=== PATIENT | female | born 1945 | race Caucasian/White ===

== ENCOUNTER → 2018-01-14 06:53 | Day surgery (SDC) | payer MEDICARE ==
[~2018-01-14 06:53] MED LIST: Acetaminophen TAB* 325 MG PO PRN; Buffered Lidocaine 0.9% SYRIN* 5 ML/SYR SYRINGE INTRADERM ONE; Cyclopentolate 1% OPTH.SOL* 2 ML BTL ONE; Ketorolac 0.5% OPHTH (NF) 0.5 % 5 ML BTL ONE; Lidocaine 1% MPF* 2 ML VIAL ONE; Lidocaine 2% EPI 1:200000 MPF* 20 ML VIAL ONE; Midazolam* 1 MG/ML 2 ML VIAL (2 MG) ONE; Neomycin/Polymy/Dex OPTH.SUSP* MAXITROL 0.1% 5 ML ONE; Phenylephrine 2.5% OPTH.SOL* 2 ML BTL ONE; Povidone Iodine 5% OPTH* 30 ML BTL ONE; Proparacaine 0.5% OPHTH.SOL* 15 ML BTL ONE; acetaZOLAMIDE TAB* 250 MG ONE
[2018-01-14 09:06] VITALS: BP 111/55
--- NOTE | 2018-01-15 00:48 | OP ---
DATE OF OPERATION: 01/14/18 [facility] DATE OF : 43 SURGEON: Jaime Valdez MD PRE-OP DIAGNOSIS: Cataract, right eye. POST-OP DIAGNOSIS: Cataract, right eye. OPERATIVE PROCEDURE: Extracapsular cataract extraction with intraocular lens implant, right eye. DESCRIPTION OF PROCEDURE: The patient was brought to the operating room after being given 1/2% Alcaine with epinephrine drops in the preoperative area. The eye was prepped and draped in the usual sterile fashion. Sterile drape and eyelid speculum were placed. Again, topical 1/2% Alcaine with epinephrine was given. A paracentesis incision was made at the 9 o'clock position with the No.75 blade. Clear cornea incision 2.2 x 2.2-mm was created at the 12 o'clock position starting at the anterior limbus using the 2.2-mm keratome. The anterior chamber was irrigated with 0.4 mL of 1% non-preservative intracameral lidocaine and filled with DisCoVisc. A capsulorrhexis was completed using the cystotome and the Utrata forceps. Hydrodissection was performed with balanced salt solution. The lens nucleus was removed with the Phacoemulsification handpiece without incident. Cortex was removed with the irrigation-aspiration handpiece. The capsular bag was re-inflated using DisCoVisc and an SN60WF 19.5 implant was inserted with the shooter. The irrigation-aspiration handpiece was used to remove all residual DisCoVisc. The eye was refilled with balanced salt solution and the wound checked and found to be watertight. Topical Maxitrol drops were given. [id number]/[facility] #: [id number] [facility]
== END | disposition home or self-care (01) ==
LOC: OREAST 06:53
PROVIDERS: ATTEND Specialist
DX: H25.811 Combined forms of age-related cataract, right eye (principal); H43.813 Vitreous degeneration, bilateral; I34.1 Nonrheumatic mitral (valve) prolapse; R00.2 Palpitations; E03.9 Hypothyroidism, unspecified; F41.8 Other specified anxiety disorders; J45.909 Unspecified asthma, uncomplicated
CPT/HCPCS: A9270-GY; J2250; V2632

== ENCOUNTER 2018-01-21 06:38 | Day surgery (SDC) | payer MEDICARE ==
[~2018-01-21 06:38] MED LIST changes: -Cyclopentolate 1% OPTH.SOL* 2 ML BTL ONE; -Ketorolac 0.5% OPHTH (NF) 0.5 % 5 ML BTL ONE; -Lidocaine 1% MPF* 2 ML VIAL ONE; -Lidocaine 2% EPI 1:200000 MPF* 20 ML VIAL ONE; -Midazolam* 1 MG/ML 2 ML VIAL (2 MG) ONE; -Neomycin/Polymy/Dex OPTH.SUSP* MAXITROL 0.1% 5 ML ONE; -Phenylephrine 2.5% OPTH.SOL* 2 ML BTL ONE; -Povidone Iodine 5% OPTH* 30 ML BTL ONE; -Proparacaine 0.5% OPHTH.SOL* 15 ML BTL ONE; -acetaZOLAMIDE TAB* 250 MG ONE
[2018-01-21] MEDS ORDERED: Lidocaine 2% EPI 1:200000 MPF* 20 ML VIAL ONE (07:39)
[2018-01-21] MEDS ORDERED: Cyclopentolate 1% OPTH.SOL* 2 ML BTL ONE (07:39)
[2018-01-21] MEDS ORDERED: acetaZOLAMIDE TAB* 250 MG ONE (07:39)
[2018-01-21] MEDS ORDERED: Lidocaine 1% MPF* 2 ML VIAL ONE (07:39)
[2018-01-21] MEDS ORDERED: Neomycin/Polymy/Dex OPTH.SUSP* MAXITROL 0.1% 5 ML ONE (07:40)
[2018-01-21] MEDS ORDERED: Povidone Iodine 5% OPTH* 30 ML BTL ONE (07:40)
[2018-01-21] MEDS ORDERED: Phenylephrine 2.5% OPTH.SOL* 2 ML BTL ONE (07:40)
[2018-01-21] MEDS ORDERED: Ketorolac 0.5% OPHTH (NF) 0.5 % 5 ML BTL ONE (07:40)
[2018-01-21] MEDS ORDERED: Proparacaine 0.5% OPHTH.SOL* 15 ML BTL ONE (07:40)
[2018-01-21] MEDS ORDERED: Midazolam* 1 MG/ML 2 ML VIAL (2 MG) ONE ×2 (07:47→08:03)
[2018-01-21 08:44] VITALS: BP 115/58
--- NOTE | 2018-01-21 10:23 | OP ---
DATE OF OPERATION: 01/21/2018 - [facility] DATE OF : 1945. SURGEON: Jaime Valdez M.D. PREOPERATIVE DIAGNOSIS: Cataract left eye. POSTOPERATIVE DIAGNOSIS: Cataract left eye. OPERATIVE PROCEDURE: Extracapsular cataract extraction with intraocular lens implant left eye. PROCEDURE: The patient was brought to the operating room after being given 1/2 % Alcaine with epinephrine drops in the preoperative area. The eye was prepped and draped in the usual sterile fashion. Sterile drape and eyelid speculum were placed. Again, topical 1/2% Alcaine with epinephrine was given. A paracentesis incision was made at the 3 o'clock position with the No.75 blade. Clear cornea incision 2.2 x 2.2-mm was created at the 6 o'clock position starting at the anterior limbus using the 2.2-mm keratome. The anterior chamber was irrigated with 0.4 mL of 1% non-preservative intracameral lidocaine and filled with DisCoVisc. A capsulorrhexis was completed using the cystotome and the Utrata forceps. Hydrodissection was performed with balanced salt solution. The lens nucleus was removed with the Phacoemulsification handpiece without incident. Cortex was removed with the irrigation-aspiration handpiece. The capsular bag was re-inflated using DisCoVisc and an SN60WF 19.5 implant was inserted with the shooter. The irrigation-aspiration handpiece was used to remove all residual DisCoVisc. The eye was refilled with balanced salt solution and the wound checked and found to be watertight. Topical Maxitrol drops were given. [id number]/[facility] #: [id number] [facility]
== END 2018-01-21 08:39 | disposition home or self-care (01) ==
LOC: OREAST 06:38
PROVIDERS: ATTEND Specialist
DX: H25.812 Combined forms of age-related cataract, left eye (principal); H43.813 Vitreous degeneration, bilateral; J45.909 Unspecified asthma, uncomplicated; E03.9 Hypothyroidism, unspecified; I10 Essential (primary) hypertension; M06.9 Rheumatoid arthritis, unspecified; F41.8 Other specified anxiety disorders; E78.00 Pure hypercholesterolemia, unspecified; I34.1 Nonrheumatic mitral (valve) prolapse; R00.2 Palpitations
CPT/HCPCS: A9270-GY; J2250; V2632